=== PATIENT | male | born 1970 | race African-American/Black ===

== ENCOUNTER 2017-06-17 12:57 | Emergency (ER) | payer SELFPAY ==
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
[2017-06-17 14:24] VITALS: BP 109/71
--- NOTE | 2017-06-17 14:28 | Diagnostic Imaging Report ---
BARBARA VERDE PERLA [facility] [address] [facility] [address] [place] [address]. [id number] Report Submission Date: Jun 17, 2017 1:50:32 PM CDT Patient Study Name: ALEXANDER BOSS Date: Jun 17, 2017 1:27:56 PM CDT Modality Type: CR Gender: M Description: PELVIS : 68 Institution: [facility] Physician: BARBARA VERDE Examination: Plain film hip History: Hip discomfort after fall Comparison exams: None provided Findings: 2 views of the hip demonstrates a hip prosthesis in place. No fracture no dislocation. Superior and inferior pubic rami and iliac wing are within normal limits. Dystrophic calcifications greater tubercle. No soft tissue abnormality. Impression: Hip prosthesis in place. No acute osseous abnormality. Electronically signed on Jun 17, 2017 1:50:32 PM CDT by: Rahat MODI
== END 2017-06-17 14:22 | disposition home or self-care (01) ==
LOC: ED 12:57
DX: M25.552 Pain in left hip (principal); M54.9 Dorsalgia, unspecified; W19.XXXA Unspecified fall, initial encounter; Y93.9 Activity, unspecified; Y99.9 Unspecified external cause status
CPT/HCPCS: 73502; 99283

== ENCOUNTER 2017-07-01 12:10 | Emergency (ER) | payer OTHER ==
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
[2017-07-01 14:30] VITALS: BP 110/79
== END 2017-07-01 13:42 | disposition home or self-care (01) ==
LOC: ED 12:10
DX: S00.86XA Insect bite (nonvenomous) of other part of head, initial encounter (principal); W57.XXXA Bitten or stung by nonvenomous insect and other nonvenomous arthropods, initial encounter; Y93.9 Activity, unspecified; Y99.9 Unspecified external cause status; L89.899 Pressure ulcer of other site, unspecified stage
CPT/HCPCS: 99283

== ENCOUNTER 2017-07-15 11:00 | Outpatient (CLI) | payer OTHER ==
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
== END 2017-07-15 13:12 ==
LOC: OUT 11:00
PROVIDERS: ATTEND Anesthesiology Pain Medicine
DX: G81.91 Hemiplegia, unspecified affecting right dominant side (principal); M25.551 Pain in right hip; M54.9 Dorsalgia, unspecified
CPT/HCPCS: 99212; 99213

== ENCOUNTER 2017-08-03 01:22 | Emergency (ER) | payer SELFPAY ==
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
[2017-08-03 02:51] LABS: BASOPHILS % 0.4 (0.0-1.5); EOSINOPHILS % 3.5 % (0.0-6.8); MEAN CORPUSCULAR VOLUME 80.8 fl (80.0-100.0); MONOCYTES % 5.8 % (0.0-11.0)
[2017-08-03 02:57] LABS: eGFR (African) > 60; eGFR (Non-African) > 60
--- NOTE | 2017-08-03 03:57 | Diagnostic Imaging Report ---
ELVIA MCKINNEY~ [facility] [address] [address] ~ ~ ~ ~ Report Submission Date: Aug 03, 2017 2:39:22 AM CDT Patient ~ Study Name: ALEXANDER BOSS ~ Date: Aug 03, 2017 2:11:33 AM CDT ~ Modality Type: CR Gender: M ~ Description: PELVIS : 68 ~ Institution: [facility] Physician: ELVIA MCKINNEY ~ ~ ~ ~ Pelvis and left hip Clinical history pain after fall Technique AP supine pelvis AP left hip frog leg left hip Findings: The pelvic ring is intact. Bilateral hip arthroplasties are present. The sacroiliac joints do not appear widened. There is no evidence of loosening or fracture of the left hip Impression: Intact hip arthroplasties with no acute pelvis or left hip pathology identified Consider CT for further evaluation ~ Electronically signed on Aug 03, 2017 2:39:22 AM CDT by: Srinivasa MODI
[2017-08-03 04:34] VITALS: BP 107/59
[2017-08-03 06:11] LABS: APPEARANCE,URINE CLEAR (CLEAR); COLOR,URINE YELLOW (YELLOW); OCCULT BLOOD,URINE NEGATIVE (NEGATIVE)
[2017-08-03 06:12] LABS: AMPHETAMINE NEGATIVE ng/mL (<1000); BARBITURATES NEGATIVE ng/mL (<300); CANNABINOIDS NEGATIVE ng/mL (< 50); COCAINE NEGATIVE ng/mL (<300); METHAMPHETAMINE NEGATIVE ng/mL (<1000); METHYLENEDIOXYMETHAMPHETAMINE NEGATIVE ng/mL (<500); OPIATES NEGATIVE ng/mL (<300)
== END 2017-08-03 03:16 | disposition home or self-care (01) ==
LOC: ED 01:22
DX: S70.02XA Contusion of left hip, initial encounter (principal); S30.0XXA Contusion of lower back and pelvis, initial encounter; W19.XXXA Unspecified fall, initial encounter; Y93.9 Activity, unspecified; Y99.9 Unspecified external cause status; M54.2 Cervicalgia
CPT/HCPCS: 80053; 80320; 80377; 81002; 85025; 85610; 99284; G0480; G0481